=== PATIENT | male | born 1945 | race Caucasian/White ===

== ENCOUNTER 2016-10-16 08:23 | Observation (INO) ==
[2016-10-16] MEDS ORDERED: *HR* Morphine 2 MG/ML SYRINGE IVP PRN (10:02)
[2016-10-16] MEDS ORDERED: Naloxone 0.4 MG/ML INJ IVP PRN (10:02)
[2016-10-16] MEDS ORDERED: Ondansetron 4 MG/2 ML VIAL IVP PRN (10:02)
[2016-10-16] MEDS ORDERED: Acetaminophen 325 MG TABLET PO PRN (10:02)
[2016-10-16] MEDS ORDERED: *HR* HYDROcodone/Acet 10/325 mg TABLET PO PRN (10:55)
--- NOTE | 2016-10-16 11:03 | Internal Med History&Physical ---
Date of Encounter: 10/16/16 Time of Encounter: 10:15 Assessment and Plan (1) Metastatic lung cancer (metastasis from lung to other site) Current visit: Yes Status: Acute Patient was diagnosed of metastatic small cell lung cancer in 08/15/2016, imaging studies revealed metastases to pleura, and liver. He completed 3 cycles of chemotherapy by the end of September. Now he comes with unbearable right sided chest and right upper quadrant pain that is not controlled with oral medications at home. Pain is likely secondary to large liver metastases. Patient desires not to undergo any more therapy and to have palliative consultation. He appoints his friend Yanni Eugene as his POA. IV morphine as needed for pain. Palliative team consulted. DNR CCA DNI Qualifiers: Laterality: right Qualified Code(s): C34.91 - Malignant neoplasm of unspecified part of right bronchus or lung (2) Pneumothorax on right Current visit: Yes Status: Acute 10/16: Chest x-ray shows stable small right pneumothorax, unchanged from chest x- ray taken on October 09. Continue oxygen supplementation. Will manage conservatively in view of patient; s wishes to be enrolled in hospice care. No need for catheter placement at this time (3) Anxiety Current visit: No Status: Acute IV ativan as needed. (4) COPD (chronic obstructive pulmonary disease) Current visit: Yes Status: Acute nebs as needed. Qualifiers: COPD type: emphysema Emphysema type: centrilobular Qualified Code(s): J43.2 - Centrilobular emphysema (5) Hypertension Current visit: No Status: Chronic Well-controlled. Hold home medications. Qualifiers: Hypertension type: essential hypertension Qualified Code(s): I10 - Essential (primary) hypertension Internal Medicine - H&P: HPI Chief complaint: Worsening of her right-sided chest pain for 2 days Admitted From: Home Plans for Post Hospital Care: Hospice - Medical Facility History of present illness: Mr. Vazquez is a 71 year old male with past medical history of stage IV lung cancer with metastasis to liver and lungs, CAD, hypertension, COPD and depression. Patient was diagnosed with stage IV lung cancer in August 2016 and completed 3 cycles of chemotherapy by the end of September. He went to [facility] and stated that he did not want any more treatment and wanted to have a palliative consultation because of unbearable pain. He was transferred to our hospital for further palliative recommendations. His main complaint is right- sided chest pain and right upper quadrant pain every time he takes a deep breath. Mild shortness of breath on exertion. Patient uses a wheelchair. No bleeding. No urinary complaints. No lower extremity edema. No headache. No syncope. No focal deficit. No diarrhea. Past Med Surg Social Fam HX - Past Medical History Medical history: arthritis, cancer, COPD, coronary artery disease, GERD, hypertension, seizures Psychiatric history: depression - Past Surgical History Surgical History: coronary bypass (CABG), orthopedic, other, other - Social History Smoking Status: Former smoker Smokeless Tobacco Status: No Alcohol use: occasionally Drug use: none - Family History Father Living Status: Hx Family GI Disorders: Yes (GI bleed) Internal Medicine - H&P: Meds Albuterol Sulfate [Proair Hfa] 2 puff IH Q6H PRN 08/12/16 [History] Amlodipine [Norvasc] 10 mg PO DAILY 08/12/16 [History] Citalopram [CeleXA] 20 mg PO DAILY 08/12/16 [History] Folic Acid 1 mg PO DAILY 08/12/16 [History] LevETIRAcetam [Levetiracetam] 1,000 mg PO BID 08/12/16 [History] Metoprolol [Lopressor] 25 mg PO BID 08/12/16 [History] Multivitamin [Multivitamins] 1 each PO DAILY 08/12/16 [History] Oxygen 1 - 6 units .ROUTE AD 08/12/16 [History] Ranitidine HCl [Heartburn Relief] 150 mg PO BID 08/12/16 [History] Allopurinol [Zyloprim 300 MG] 300 mg PO DAILY 08/22/16 [History] Ondansetron ODT [Zofran ODT] 4 mg SL Q6HR PRN 08/22/16 [History] Megestrol Acetate [Megace] 40 mg PO BID #60 tablet 09/11/16 [Rx] Bed - Hospital [Hospital Bed] 1 each .ROUTE AD #1 each 09/25/16 [Rx] Lactose-Reduced Food [Ensure Liquid] 1 bottle PO TID #90 can 09/25/16 [Rx] LORazepam [Ativan] 1 mg PO Q6H PRN #90 tablet 10/14/16 [Rx] Morphine Immed Rel [Morphine Sulfate] 30 mg PO BID #60 tablet 10/14/16 [Rx] Oxycodone HCl/Acetaminophen [Percocet 10-325 mg Tablet] 1 each PO Q6H PRN #120 tablet 10/14/16 [Rx] Allergies iodine Adverse Reaction (Verified 10/09/16 06:34) See Comments IVP DYE ADVERSE REACTION MADE PT STAY PASSED OUT FOR 24 HRS All Systems PM: A 10-system review of systems was performed and is negative for pertinent findings except as documented above in the HPI. - Constitutional Vitals: Temp Pulse Resp BP Pulse Ox 97.9 F 108 20 109/71 92 L 10/16/16 10:43 10/16/16 10:43 10/16/16 10:43 10/16/16 10:43 10/16/16 10:43 General appearance: Present: cooperative, mild distress (mild respiratory distress due to RUQ pain), pleasant, answers questions appropriately - Eye Eye exam: Present: PERRL, sclera anicteric - Neck Neck exam general surgery: Present: supple, trachea midline - Respiratory Respiratory exam: Present: rhonchi (at lung bases) - Cardiovascular Cardiovascular exam: Present: tachycardia - GI/Abdominal GI/Abdominal exam: Present: normal bowel sounds, soft. Absent: distended, tenderness - Extremities Exam Extremities exam: Absent: pedal edema - Back Exam Back exam: Absent: CVA tenderness (L), CVA tenderness (R) - Neurological Exam Neurological exam: Present: alert, oriented X3, no focal deficits. Absent: facial droop, speech deficit
[2016-10-16] MEDS: *HR* LORazepam 2 MG/ML VIAL IVP SCH ×3 (13:08→21:48)
--- NOTE | 2016-10-16 14:11 | Palliative - Consult Note ---
Date of Encounter: 10/16/16 Time of Encounter: 13:53 - Assessment and Plan (1) Constipation Current Visit: Yes Status: Acute Assessment and plan: Have placed patient on bowel regimen continue to watch. Qualifiers: Constipation type: slow transit constipation Qualified Code(s): K59.01 - Slow transit constipation (2) Chest pain Current Visit: Yes Status: Acute Assessment and plan: Morphine as needed every 2 hours patient states that this has been effective for him. Pain in chest is related to pain in abdomen which I believe is all related back to his cancer pain. She did treat this and adjust medications as needed. Qualifiers: Chest pain type: chest pain on breathing Qualified Code(s): R07.1 - Chest pain on breathing (3) COPD (chronic obstructive pulmonary disease) Current Visit: Yes Status: Acute Assessment and plan: She has severe COPD and a questionable pneumothorax on the right side. There was question about a chest tube being placed and I am doubtful at this time it is necessary, I have consult to pulmonary to get their opinion at the patient 's request. Then the patient can decide if he wants to have the chest tube or not. Qualifiers: COPD type: emphysema Emphysema type: centrilobular Qualified Code(s): J43.2 - Centrilobular emphysema (4) Metastatic lung cancer (metastasis from lung to other site) Current Visit: Yes Status: Acute Assessment and plan: Under care from cancer Center. The patient states that he was told they had nothing left to offer. I have reviewed their notes I am not clear that there is nothing left to offer or not. For the patient's request I have consult oncology to clarify. If oncology has nothing to offer patient would like to opt for [facility] hospice as he lives in [facility]. Qualifiers: Laterality: right Qualified Code(s): C34.91 - Malignant neoplasm of unspecified part of right bronchus or lung (5) Pneumothorax on right Current Visit: Yes Status: Acute Assessment and plan: This could be chronic scarring, I have requested a consult from pulmonary as I am not sure he truly needs to have a chest tube placed. Having their opinion involved. Proceed after we get pulmonary's opinion. (6) Anxiety Current Visit: No Status: Acute Assessment and plan: he is on scheduled Ativan continue to watch. (7) Goals of care, counseling/discussion Current Visit: Yes Status: Acute Assessment and plan: Patient is DNR CCA DNI. He may very well wish to be comfort care ultimately but at this time he would like to have options given to him regarding his current situation and therefore we will not change him to comfort care until after we have all the decision-making is in place. Palliative-CN HPI - Data of Consult Patient: new to practice Requesting Physician: Florinda Johnson MD Primary Care Provider: PCP NO - Consult Narrative Palliative Care/Comfort Measures: Palliative care Reason for consult: Hospice questions, goals of care, pain control History of present illness: Mr. Vazquez is a 71 year old male Who presented to the [place] ER earlier today with increasing shortness of breath and abdominal pain that exist that extends into his chest. She has metastatic stage IV lung cancer metastases to liver. Also has CAD, hypertension and COPD which is rather severe and depression. He has completed 3 cycles of chemotherapy by the end of September after being diagnosed in August 2016 with lung cancer at the [place] ED he stated he did not wish to have any more treatment wanted to have palliative consultation and possibly hospice care. Plaints of very sharp pain across the right hand side of his chest and throughout his abdomen this is worse with movement trying to have a bowel movement or taking a deep breath is better with rest. Medication does seem to help with the pain. He also states he has been feeling more short of breath here of late. [place] emergency department it was noted that he had what appears to be a small pneumothorax on the right hand side. This does not seem to have changed all since the eighth and looking at his CT scan from the third may be a very large bleb. She wishes to have consultation asked whether not this requires a chest tube or not CC: Florinda Johnson MD Matthew of breath, and abdominal/chest pain Past Med Surg Social Fam HX - Past Medical History Medical history: arthritis, cancer, COPD, coronary artery disease, GERD, hypertension, seizures Psychiatric history: depression - Past Surgical History Surgical History: coronary bypass (CABG), orthopedic, other, other - Social History Smoking Status: Former smoker Smokeless Tobacco Status: No Alcohol use: occasionally Drug use: none - Family History Father Living Status: Hx Family GI Disorders: Yes (GI bleed) Medications and Allergies Albuterol Sulfate [Proair Hfa] 2 puff IH Q6H PRN 08/12/16 [History] Amlodipine [Norvasc] 10 mg PO DAILY 08/12/16 [History] Citalopram [CeleXA] 20 mg PO DAILY 08/12/16 [History] Folic Acid 1 mg PO DAILY 08/12/16 [History] LevETIRAcetam [Levetiracetam] 1,000 mg PO BID 08/12/16 [History] Metoprolol [Lopressor] 25 mg PO BID 08/12/16 [History] Multivitamin [Multivitamins] 1 each PO DAILY 08/12/16 [History] Oxygen 2 l .ROUTE AD 08/12/16 [History] Ranitidine HCl [Heartburn Relief] 150 mg PO BID 08/12/16 [History] Allopurinol [Zyloprim 300 MG] 300 mg PO DAILY 08/22/16 [History] Ondansetron ODT [Zofran ODT] 4 mg SL Q6HR PRN 08/22/16 [History] Megestrol Acetate [Megace] 40 mg PO BID #60 tablet 09/11/16 [Rx] Lactose-Reduced Food [Ensure Liquid] 1 bottle PO TID #90 can 09/25/16 [Rx] LORazepam [Ativan] 1 mg PO Q6H PRN #90 tablet 10/14/16 [Rx] Morphine Immed Rel [Morphine Sulfate] 30 mg PO BID #60 tablet 10/14/16 [Rx] HydrOXYzine Pamoate [Hydroxyzine Pamoate] 25 mg PO TID 10/16/16 [History] Oxycodone HCl/Acetaminophen [Percocet 10-325 mg Tablet] 1 tab PO Q6H PRN [History] TraZODone 50 mg PO HS 10/16/16 [History] Allergies iodine Adverse Reaction (Verified 10/09/16 06:34) See Comments IVP DYE ADVERSE REACTION MADE PT STAY PASSED OUT FOR 24 HRS - Constitutional Constitutional ROS PAL: decreased appetite, anorexia, malaise, weight loss - EENT Eyes: no discharge, no pain Ears: no ear discharge, no ear pain Ears, nose, mouth, throat: no dysphagia, no epistaxis, no mouth pain, no nasal congestion - Cardiovascular Cardiovascular ROS: chest pain, chest pain at rest, chest pain with activity, dyspnea on exertion, no irregular heart rhythm - Respiratory Respiratory: cough, dyspnea on exertion, pain on inspiration - Gastrointestinal Gastrointestinal: abdominal pain, constipation, no diarrhea, no nausea, no vomiting - Genitourinary Genitourinary ROS male: no urinary frequency, no urinary hesitancy, no urinary incontinence - Musculoskeletal Musculoskeletal ROS IM: back pain, myalgias - Integumentary ROS Integumentary: no rash, no skin pain, no sores, no wounds - Neurological Neurological ROS: no behavioral changes, no disequilibrium, no dizziness, no focal weakness, no headache(s), no lack of coordination - Psychiatric Psychiatric general PM: change in appetite, depression (Questionable), no confusion, no homicidal ideation, no hopelessness - Endocrine Endocrine IM: other (No thyroid or diabetes problems noted.) Palliative Care-Exam - Constitutional Vitals: Temp Pulse Resp BP Pulse Ox 97.9 F 108 20 109/71 92 L 10/16/16 10:43 10/16/16 10:43 10/16/16 10:43 10/16/16 10:43 10/16/16 10:43 General appearance: Present: no acute distress - Head Head Exam: Present: atraumatic, normal inspection - Eye Eye exam: Present: EOMI, normal appearance, PERRL - ENT ENT exam: Present: mucous membranes moist, normal oropharynx - Neck Neck exam: Present: normal inspection - Respiratory Respiratory exam: Present: chest wall tenderness, CTAB. Absent: decreased breath sounds (I am not hearing diminished sounds on the right side, there is a history of pneumothorax on the right.) - Cardiovascular Cardiovascular exam: Present: RRR - GI/Abdominal Exam GI/Abdominal exam: Present: normal bowel sounds, soft, tenderness - Extremities Exam Extremities exam: Present: normal inspection. Absent: pedal edema, tenderness - Neurological Exam Neurological exam: Present: alert, oriented X3 - Psychiatric Psychiatric exam: Present: normal affect, normal mood. Absent: agitated, anxious, homicidal ideation, suicidal ideation - Skin Skin exam: Present: dry, warm Consult Discharge Plan - Plan Referrals: NO,PCP [Primary Care Provider] - (waiting to see if patient goes hospice) Palliative Quality Palliative Quality: Screen for Code Status: Yes, Screen for Goals of Care: Yes, Screen for Pain: Yes, If Pain Regimen Started, Initiate Bowel Regimen: Yes, Screen for Nausea/Vomitting: Yes Code Status: 10/16/16 10:02 Resuscitation Status: Active [RES] Routine Comment: Resuscitation Status: [id number]
--- NOTE | 2016-10-16 15:32 | Event Note ---
Date of Encounter: 10/16/16 Time of Encounter: 15:30 The patient has now been seen by both pulmonary and oncology. Pulmonary does not feel the patient needs a chest tube and oncology does not have anything further to add to his therapy. Per oncology patient is opting for hospice. Start making that work as the patient wishes to have [facility] hospice back at [facility].
[2016-10-16] MEDS: *HR* Morphine 2 MG/ML SYRINGE IVP PRN ×2 (16:03→21:49)
--- NOTE | 2016-10-16 16:33 | Oncology Inp Consult Note ---
<Jimmie Jeffries Jr - Last Filed: 10/16/16 16:31> Date of Encounter: 10/16/16 Time of Encounter: 15:25 Assessment and Plan (1) Metastatic lung cancer (metastasis from lung to other site) Status: Acute Assessment and plan: He is a very pleasant, but unfortunate, 71-year-old male transferred from [facility] for pneumothorax on imaging. He was diagnosed a few weeks ago with metastatic extensive stage small cell lung cancer, with liver disease and disease in his mediastinal lymph nodes. She was transferred to palliative care unit for further treatment planning. The patient's had 3 cycles of carboplatin and etoposide. However, recent scans on 10/04/2016 show some progression despite treatment. The patient is extremely weak and has poor functional status. Patient wanted to know his options. There is no other treatment we would have or him outside of his current chemotherapy regimen. Patient did not want to entertain immunotherapy, like nivolumab. This would not be a good choice for him either, as autoimmune pneumonitis is a possible side effect. He would do poorly if this was result. The patient has severe lung disease outside of his cancer diagnosis. Dr. Miller came to see the patient as well. He agrees with poor prognosis, and hospice, as his lung disease is advanced. He declined to place chest tube or catheter into the pneumothorax because his lungs are too frail. So, conservative measures will be taken. After a long end-of-life discussion with me, and Dr Rudd, the patient has decided to go hospice, and not seek any further treatment. Patient will be set up with [facility] hospice at discharge. Dr Kenney advised. Dr Nam is manager economic and agrees with above plan. Qualifiers: Laterality: right Qualified Code(s): C34.91 - Malignant neoplasm of unspecified part of right bronchus or lung (2) Encounter for hospice care discussion Status: Acute - Data of Consult Patient: known to practice within the last 3 years Consult date: 10/16/16 Requesting Physician: Florinda Johnson MD Primary Care Provider: PCP NO - Consult Narrative Reason for consult: extensive stage small cell lung cancer History of present illness: Mr. Vazquez is a 71 year old male with metastatic , extensive stage, small cell lung cancer His oncologic history began with a CT chest w/o con on 08/12/16 shows large mass in the right lower lobe with extensive mediastinal and extrapleural lymphadenapathy with probable pleural metastases. Non-contrast CT also showed few lesions in the liver which could be metastasis per Rickreall but no obvious lesions reported in the CAT scan report PFT on 06/08/15 shows FEV1 2.61, 78% predicted ST on 06/13/15 shows perfusion imaging was negative for ischemia or infarct. gated EF= >70% He was admitted to [facility] where he underwent bronchoscopy biopsy Pathology from 08/15/16 shows small cell carcinoma, synaptophysin- positive, TTF -1-positive. CT head negative. Nuclear bone scan negative at [facility] Patient refused PET scan and MRI brain, as he cannot lay down for such a long period. He got first cycle of carboplatin and etoposide 08/17/2016 to 08/19/2016 as an inpatient. Cycle 2 on 09/09/2016. Carboplatin AUC 5 on day 1, Etoposide 60 mg/m day 1- 3. Neulasta day 5 Completed cycle 3 starting 09/30/2016. Cycle four scheduled for 10/21/[address] chest without contrast 10/04/2016 showed right paratracheal lung mass 5.8 x 5.1 cm no major change the treatment and progressive lymph nodes in the epicardial fat pad and multiple hepatic metastasis with evidence of progression the larger mass was 5.1 x 4.5 cm. Today, 10/16/2016, he sought emergency treatment at [facility] in [place], [place]. The patient has shortness of breath. Imaging showed possible pneumothorax in the right upper lung. Patient was transferred to [facility] palliative care unit, as patient desired discussion about hospice versus other treatment options. Past Med Surg Social Fam HX - Past Medical History Medical history: arthritis, cancer, COPD, coronary artery disease, GERD, hypertension, seizures Psychiatric history: depression - Past Surgical History Surgical History: coronary bypass (CABG), orthopedic, other, other - Social History Smoking Status: Former smoker Smokeless Tobacco Status: No Alcohol use: occasionally Drug use: none - Family History Father Living Status: Hx Family GI Disorders: Yes (GI bleed) Medications and Allergies Albuterol Sulfate [Proair Hfa] 2 puff IH Q6H PRN 08/12/16 [History] Amlodipine [Norvasc] 10 mg PO DAILY 08/12/16 [History] Citalopram [CeleXA] 20 mg PO DAILY 08/12/16 [History] Folic Acid 1 mg PO DAILY 08/12/16 [History] LevETIRAcetam [Levetiracetam] 1,000 mg PO BID 08/12/16 [History] Metoprolol [Lopressor] 25 mg PO BID 08/12/16 [History] Multivitamin [Multivitamins] 1 each PO DAILY 08/12/16 [History] Oxygen 2 l .ROUTE AD 08/12/16 [History] Ranitidine HCl [Heartburn Relief] 150 mg PO BID 08/12/16 [History] Allopurinol [Zyloprim 300 MG] 300 mg PO DAILY 08/22/16 [History] Ondansetron ODT [Zofran ODT] 4 mg SL Q6HR PRN 08/22/16 [History] Megestrol Acetate [Megace] 40 mg PO BID #60 tablet 09/11/16 [Rx] Lactose-Reduced Food [Ensure Liquid] 1 bottle PO TID #90 can 09/25/16 [Rx] LORazepam [Ativan] 1 mg PO Q6H PRN #90 tablet 10/14/16 [Rx] Morphine Immed Rel [Morphine Sulfate] 30 mg PO BID #60 tablet 10/14/16 [Rx] HydrOXYzine Pamoate [Hydroxyzine Pamoate] 25 mg PO TID 10/16/16 [History] Oxycodone HCl/Acetaminophen [Percocet 10-325 mg Tablet] 1 tab PO Q6H PRN [History] TraZODone 50 mg PO HS 10/16/16 [History] Allergies iodine Adverse Reaction (Verified 10/09/16 06:34) See Comments IVP DYE ADVERSE REACTION MADE PT STAY PASSED OUT FOR 24 HRS All systems: reviewed and no additional remarkable complaints except as stated Constitutional: Present: fatigue, malaise, weight loss Cardiovascular: Present: chest pain, chest pain at rest, chest pain with activity Respiratory: Present: cough, dyspnea, dyspnea on exertion, wheezing, excessive phlegm production Gastrointestinal: Present: nausea Musculoskeletal: Present: limited range of motion, muscle weakness, stiffness Psychiatric: Present: depression Oncology - Exam - Constitutional Vitals: Temp Pulse Resp BP Pulse Ox 97.9 F 108 20 109/71 92 L 10/16/16 10:43 10/16/16 10:43 10/16/16 10:43 10/16/16 10:43 10/16/16 10:43 General appearance: average body habitus, disheveled, mild distress - Head Head exam: Present: atraumatic, normal inspection - Eye Eye exam: Present: normal appearance, PERRL - ENT ENT exam: Present: mucous membranes dry - Neck Neck exam: Present: full ROM, normal inspection - Respiratory Respiratory exam: Present: accessory muscle use, decreased breath sounds, prolonged expiratory phase, respiratory distress, wheezes, tachypnea - Cardiovascular Cardiovascular exam: Present: +S1, +S2, tachycardia - GI/Abdominal GI/Abdominal exam: Present: diminished bowel sounds, soft - Extremities Exam Extremities exam: Present: full ROM, normal inspection - Neurological Exam Neurological exam: Present: alert, no focal deficits, speech deficit - Psychiatric Psychiatric exam: Present: anxious, depressed - Skin Skin exam: Present: dry, intact, pallor, warm Consult Discharge Plan - Plan Referrals: NO,PCP [Primary Care Provider] - (waiting to see if patient goes hospice) <Tad Nam - Last Filed: 10/17/16 08:10> Date of Encounter: 10/17/16 - Data of Consult Requesting Physician: Florinda Johnson MD Primary Care Provider: PCP NO - Consult Narrative History of present illness: Mr. Vazquez is a 71 year old male extensive stage small cell lung cancer, with progressive disease and clinical deterioration hospitalized after initial treatment at [facility]. Patient is in moderate distress with shortness of breath, had agreed to hospice after discussion with palliative care team and oncology. On my exam patient is using oxygen in mild to moderate distress. He denies any pain currently. He has been discussed other treatment options, and desires to be with hospice, transient Transition to inpatient hospice care. Palliative care team seen patient and discussed hospice care in detail. I agree with the above consultation notes and plan of care as noted above was discussed with me by Reece Jeffries CNP. Oncology - Exam - Constitutional Vitals: Temp Pulse Resp BP Pulse Ox 98.3 F 100 30 107/65 95 10/17/16 06:58 10/17/16 06:58 10/17/16 06:58 10/17/16 06:58 10/17/16 06:58 Oncology - Results - Labs Labs: BMP 10/17/16 06:12 Sodium 137 Potassium 3.1 L Chloride 102 Carbon Dioxide 20 BUN 8 Creatinine 0.65 L Glucose 104 H Calcium 9.5
--- NOTE | 2016-10-16 17:19 | Pulmonology Consult Note ---
Date of Encounter: 10/16/16 Time of Encounter: 16:30 Assessment and Plan (1) Pneumothorax on right Current Visit: Yes Status: Acute I reviewed chest x-ray and discussed with the patient that he has pneumothorax but it has been stable the treatment is to have a small chest tube, however with his advanced lung disease and might complicate his situation and since he does not want any invasive procedure including chest tube, I believe the best plan is to keep patient comfortable and this was discussed with Dr. Rudd as well as oncology team. Give for the consult and agreed with plan of care. (2) COPD (chronic obstructive pulmonary disease) Current Visit: Yes Status: Chronic Qualifiers: COPD type: emphysema Emphysema type: centrilobular Qualified Code(s): J43.2 - Centrilobular emphysema (3) Metastatic lung cancer (metastasis from lung to other site) Current Visit: Yes Status: Chronic Qualifiers: Laterality: right Qualified Code(s): C34.91 - Malignant neoplasm of unspecified part of right bronchus or lung History of Present Illness Consult date: 10/16/16 Requesting physician: William Rudd Reason for consult: pneumothorax Chief complaint: Pneumothorax History of present illness: This is a pleasant 71-year-old with past medical history of stage IV lung cancer with metastasis to the liver and the lungs and multiple other medical problems with also advanced COPD and pulmonary fibrosis who presented to the hospital with right-sided chest pain and also shortness of breath. Patient had chemotherapy. Patient was found to have right-sided pneumothorax which has been stable. Patient does not want any invasive procedure and he stated his breat Past Med Surg Social Fam HX - Past Medical History Medical history: arthritis, cancer, COPD, coronary artery disease, GERD, hypertension, seizures Psychiatric history: depression - Past Surgical History Surgical History: coronary bypass (CABG), orthopedic, other, other - Social History Smoking Status: Former smoker Smokeless Tobacco Status: No Alcohol use: occasionally Drug use: none - Family History Father Living Status: Hx Family GI Disorders: Yes (GI bleed) Medications and Allergies Albuterol Sulfate [Proair Hfa] 2 puff IH Q6H PRN 08/12/16 [History] Amlodipine [Norvasc] 10 mg PO DAILY 08/12/16 [History] Citalopram [CeleXA] 20 mg PO DAILY 08/12/16 [History] Folic Acid 1 mg PO DAILY 08/12/16 [History] LevETIRAcetam [Levetiracetam] 1,000 mg PO BID 08/12/16 [History] Metoprolol [Lopressor] 25 mg PO BID 08/12/16 [History] Multivitamin [Multivitamins] 1 each PO DAILY 08/12/16 [History] Oxygen 2 l .ROUTE AD 08/12/16 [History] Ranitidine HCl [Heartburn Relief] 150 mg PO BID 08/12/16 [History] Allopurinol [Zyloprim 300 MG] 300 mg PO DAILY 08/22/16 [History] Ondansetron ODT [Zofran ODT] 4 mg SL Q6HR PRN 08/22/16 [History] Megestrol Acetate [Megace] 40 mg PO BID #60 tablet 09/11/16 [Rx] Lactose-Reduced Food [Ensure Liquid] 1 bottle PO TID #90 can 09/25/16 [Rx] LORazepam [Ativan] 1 mg PO Q6H PRN #90 tablet 10/14/16 [Rx] Morphine Immed Rel [Morphine Sulfate] 30 mg PO BID #60 tablet 10/14/16 [Rx] HydrOXYzine Pamoate [Hydroxyzine Pamoate] 25 mg PO TID 10/16/16 [History] Oxycodone HCl/Acetaminophen [Percocet 10-325 mg Tablet] 1 tab PO Q6H PRN [History] TraZODone 50 mg PO HS 10/16/16 [History] Allergies iodine Adverse Reaction (Verified 10/09/16 06:34) See Comments IVP DYE ADVERSE REACTION MADE PT STAY PASSED OUT FOR 24 HRS All Systems: A 10-system review of systems was performed and is negative for pertinent findings except as documented above in the HPI. Physical Examination Vital Signs: Vital Signs, Last 4 Hours Temp Pulse Resp BP Pulse Ox 10/16/16 16:31 98.2 F 108 18 110/66 95 General appearance: alert, lethargic, appears uncomfortable ENT: oropharynx dry Neck: supple Effort: mildly labored Inspection: hyperextended Auscultation: right: other (Bronchial breathing sounds in the upper zone), bilateral: diminished breath sounds, rhonchi Percussion: bilateral: not dull Cardiovascular: regular rate and rhythm Gastrointestinal: normoactive bowel sounds Extremities: no cyanosis normal mental status, non-focal exam depressed Results - Diagnostic Findings Chest x-ray: report reviewed, image reviewed - Clinical Findings Intake & Output: Intake & Output 10/16/16 10/16/16 10/16/16 07:59 15:59 23:59 Weight 81.647 kg Consult Discharge Plan - Plan Referrals: NO,PCP [Primary Care Provider] - (waiting to see if patient goes hospice)
[2016-10-16] MEDS: Sennosides/Docusate Sodium TABLET PO SCH (21:48)
[2016-10-17] MEDS: *HR* Morphine 2 MG/ML SYRINGE IVP PRN ×5 (00:39→10:56)
[2016-10-17] MEDS: *HR* LORazepam 2 MG/ML VIAL IVP SCH ×4 (00:40→12:42)
[2016-10-17 07:16] LABS: BUN/Creatinine Ratio 12 (6-26); Blood Urea Nitrogen 8 mg/dL (8-26); Calcium 9.5 mg/dL (8.6-10.8); Carbon Dioxide 20 mEq/L (19-29); Chloride 102 mEq/L (98-109); Glucose 104 mg/dL (70-99); Magnesium 1.1 mg/dL (1.6-2.6); Osmolality,Calculated 283 (280-300); Potassium 3.1 mEq/L (3.5-4.5); Sodium 137 mEq/L (136-145); eGFR For African Americans > 60 (> 60); eGFR For Non-African Americans > 60 (> 60)
[2016-10-17] MEDS: Sennosides/Docusate Sodium TABLET PO SCH ×2 (08:52→23:04)
[2016-10-17] MEDS ORDERED: *HR* HYDROcodone/Acet 10/325 mg TABLET PO PRN (09:31)
[2016-10-17] MEDS: Ipratropium/Albuterol Neb 3 ML IH PRN ×2 (09:34→20:45)
--- NOTE | 2016-10-17 09:36 | Palliative Progress Note ---
Date of Encounter: 10/17/16 Time of Encounter: 09:00 - Assessment and plan (1) Exertional dyspnea Current Visit: No Status: Acute Assessment and plan: Continue Morphine PRN as needed. Has utilized x4 last 24 hours (2) Constipation Current Visit: Yes Status: Acute Assessment and plan: Continue bowel regimen and monitor. + BM this am. Qualifiers: Constipation type: slow transit constipation Qualified Code(s): K59.01 - Slow transit constipation (3) Goals of care, counseling/discussion Current Visit: Yes Status: Acute Assessment and plan: Consults from oncology and pulmonology reviewed and appreciated. Patient desires at this point to return to [facility] with [facility]. If ok with primary team, pt can be transferred today. Referral has been called. - Time Spent With Patient Total time spent is greater than 50% in coordination of care (as documented) at patient's floor/unit and/or counseling patient: 25 - 35 minutes - Subjective Interval history: Patient awake and alert. Ambulated to and had BM. C/o shortness of breath on exertion. Denies pain. No other complaints - Constitutional Vitals: Abnormal lab results Potassium 3.1 mEq/L (3.5-4.5) L 10/17/16 06:12 Creatinine 0.65 mg/dL (0.72-1.25) L 10/17/16 06:12 Glucose 104 mg/dL (70-99) H 10/17/16 06:12 Magnesium 1.1 mg/dL (1.6-2.6) L 10/17/16 06:12 General appearance: Present: no acute distress - Respiratory Respiratory exam: Present: decreased breath sounds, CTAB - Cardiovascular Cardiovascular exam: Present: +S1, +S2 - GI/Abdominal GI/Abdominal exam: Present: hypoactive bowel sounds, soft - Extremities Exam Extremities exam: Present: normal capillary refill, normal inspection - Neurological Exam Neurological exam: Present: alert, oriented X3, strengths equal and symetr throughout - Skin Skin exam: Present: dry, pallor, warm Palliative Quality Palliative Quality: Screen for Code Status: Yes, Screen for Goals of Care: Yes, Screen for Pain: Yes, If Pain Regimen Started, Initiate Bowel Regimen: Yes, Screen for Nausea/Vomitting: Yes Code Status: 10/16/16 10:02 Resuscitation Status: Active [RES] Routine Comment: Resuscitation Status: [id number] - Labs CBC & Chem 7: 10/17/16 06:12 Labs: Laboratory Results - last 24 hr 10/17/16 06:12 Sodium 137 Potassium 3.1 L Chloride 102 Carbon Dioxide 20 BUN 8 Creatinine 0.65 L Est GFR ( Amer) > 60 Est GFR (Non-Af Amer) > 60 BUN/Creatinine Ratio 12 Glucose 104 H Calculated Osmolality 283 Calcium 9.5 Magnesium 1.1 L Consult Discharge Plan - Plan Referrals: NO,PCP [Primary Care Provider] - (waiting to see if patient goes hospice)
[2016-10-17 10:16] LABS: Basophils # 0.1 K/mcL (0.0-0.2); Basophils % 0.8 %; Eosinophils # 0.3 K/mcL (0.0-0.6); Eosinophils % 3.4 %; Hematocrit 30.7 % (37.5-50.1); Hemoglobin 9.9 g/dL (12.9-16.9); Immature Granulocytes % 0.8 % (0-4); Lymphocytes # 1.6 K/mcL (0.6-4.6); Lymphocytes % 16.1 %; Mean Corpuscular HGB Conc 32.2 g/dL (31.6-35.5); Mean Corpuscular Hemoglobin 26.4 pg (28.0-33.3); Mean Corpuscular Volume 81.9 fL (83.0-100.0); Mean Platelet Volume 9.3 fL (9.4-12.4); Monocytes # 0.9 K/mcL (0.0-1.3); Monocytes % 9.2 %; Platelet Count 225 K/mcL (140-400); Red Blood Count 3.75 M/mcL (4.19-5.50); Red Cell Distribution Width 18.9 % (11.5-14.5); Segmented Neutrophils % 69.7 %
[2016-10-17] MEDS ORDERED: Haloperidol Lactate 5 MG/ML VIAL IVP PRN (11:49)
--- NOTE | 2016-10-17 13:13 | Event Note ---
Date of Encounter: 10/17/16 Time of Encounter: 13:00 Patient has became more confused throughout the day. At this point, he is not safe to be home alone for any period of time. Discussed with social work, [facility] has no bed available. Social work continuing to work on discharge plan. Continue to follow. Will not be able to be discharged today. .
[2016-10-17] MEDS ORDERED: Morphine Oral CONC 5 MG/0.25 ML ORAL.SYG PO PRN ×2 (14:14→16:55)
[2016-10-17] MEDS ORDERED: *HR* Morphine 2 MG/ML SYRINGE SQ ONE ×2 (14:37→15:45)
--- NOTE | 2016-10-17 14:42 | Internal Med Progress Note ---
Date of Encounter: 10/17/16 Time of Encounter: 10:10 - Assessment and plan (1) Metastatic lung cancer (metastasis from lung to other site) Current Visit: Yes Status: Chronic Assessment and plan: Poor prognosis. Recommend hospice. Palliative care following patient. Qualifiers: Laterality: right Qualified Code(s): C34.91 - Malignant neoplasm of unspecified part of right bronchus or lung (2) Pneumothorax on right Current Visit: Yes Status: Acute Assessment and plan: Related to metastatic lung cancer. No intervention at this time given patient' s DNR Comfort Care status. Supportive care. Pain control. O2 supplementation. (3) Seizures Current Visit: Yes Status: Chronic Assessment and plan: Resume Keppra. (4) COPD (chronic obstructive pulmonary disease) Current Visit: Yes Status: Chronic Assessment and plan: Continue O2 supplementation. Nebs as needed Qualifiers: COPD type: emphysema Emphysema type: centrilobular Qualified Code(s): J43.2 - Centrilobular emphysema - Subjective Interval history: Evaluated patient this morning. Awake and alert. Says pain has been well controlled. Denies any new complaints at this time. No nausea or vomiting. Patient became more confused as the day progressed. - Constitutional Vitals: Temp Pulse Resp BP Pulse Ox 98.8 F 125 30 117/63 92 L 10/17/16 10:36 10/17/16 10:36 10/17/16 10:36 10/17/16 10:36 10/17/16 10:36 General appearance: Present: cooperative, pleasant, no acute distress, answers questions appropriately - Respiratory Respiratory exam: Present: decreased breath sounds (at bases), CTAB, rhonchi. Absent: accessory muscle use, rales, wheezes - Cardiovascular Cardiovascular exam: Present: RRR, +S1, +S2. Absent: diastolic murmur, gallop, rubs, systolic murmur - Extremities Exam Extremities exam: Present: warm, radial pulses palpable and symetrical. Absent : calf tenderness, cyanotic, pedal edema Internal Medicine: Result - Labs CBC & Chem 7: 10/17/16 06:12 10/17/16 06:12 Labs: Short CBC 10/17/16 Range/Units 06:12 WBC 10.1 (4.3-11.1) K/mcL Hgb 9.9 L (12.9-16.9) g/dL Hct 30.7 L (37.5-50.1) % Plt Count 225 (140-400) K/mcL Neutrophils # 7.0 (1.6-8.9) K/mcL BMP 10/17/16 06:12 Sodium 137 Potassium 3.1 L Chloride 102 Carbon Dioxide 20 BUN 8 Creatinine 0.65 L Glucose 104 H Calcium 9.5 Consult Discharge Plan - Plan Referrals: NO,PCP [Primary Care Provider] - (waiting to see if patient goes hospice) - Attending Attestation This document has been at least partially created by [employer] recognition technology by Dr. Johnson. Errors in grammar, wording or other phrases may exist. If errors are found after the documentation is signed, they will be addressed individually in the addendum section of this document when appropriate.
[2016-10-17] MEDS: Haloperidol Lactate 5 MG/ML VIAL IM PRN ×2 (14:46→20:30)
[2016-10-17] MEDS ORDERED: *HR* LORazepam Oral Conc 2 MG/ML SL SCH (16:00)
[2016-10-17] MEDS: levETIRAcetam 250 MG TABLET PO SCH (17:07)
[2016-10-17] MEDS: Morphine Oral CONC 5 MG/0.25 ML ORAL.SYG PO SCH (20:40)
[2016-10-17] MEDS: Haloperidol Oral Conc 10 MG/5 ML UDC PO SCH (23:04)
[2016-10-18] MEDS: Morphine Oral CONC 5 MG/0.25 ML ORAL.SYG PO SCH ×3 (00:47→08:25)
[2016-10-18] MEDS: Haloperidol Lactate 5 MG/ML VIAL IM PRN (01:14)
[2016-10-18] MEDS: Ipratropium/Albuterol Neb 3 ML IH PRN (04:20)
[2016-10-18] MEDS: Haloperidol Oral Conc 10 MG/5 ML UDC PO SCH (05:55)
[2016-10-18] MEDS: levETIRAcetam 250 MG TABLET PO SCH (05:55)
[2016-10-18 07:56] VITALS: BP 130/80
[2016-10-18] MEDS: Sennosides/Docusate Sodium TABLET PO SCH (08:26)
[2016-10-18] MEDS ORDERED: *HR* FentaNYL PATCH 25 MCG PATCH TD SCH (09:00)
--- NOTE | 2016-10-18 09:07 | Palliative Progress Note ---
Date of Encounter: 10/18/16 Time of Encounter: 08:50 - Assessment and plan (1) Constipation Current Visit: Yes Status: Acute Qualifiers: Constipation type: slow transit constipation Qualified Code(s): K59.01 - Slow transit constipation (2) Chest pain Current Visit: Yes Status: Acute Qualifiers: Chest pain type: chest pain on breathing Qualified Code(s): R07.1 - Chest pain on breathing (3) COPD (chronic obstructive pulmonary disease) Current Visit: Yes Status: Chronic Qualifiers: COPD type: emphysema Emphysema type: centrilobular Qualified Code(s): J43.2 - Centrilobular emphysema (4) Metastatic lung cancer (metastasis from lung to other site) Current Visit: Yes Status: Chronic Qualifiers: Laterality: right Qualified Code(s): C34.91 - Malignant neoplasm of unspecified part of right bronchus or lung (5) Goals of care, counseling/discussion Current Visit: Yes Status: Acute - Time Spent With Patient Total time spent is greater than 50% in coordination of care (as documented) at patient's floor/unit and/or counseling patient: - Subjective Interval history: Very restless - Constitutional Vitals: Abnormal lab results RBC 3.75 M/mcL (4.19-5.50) L 10/17/16 06:12 Hgb 9.9 g/dL (12.9-16.9) L 10/17/16 06:12 Hct 30.7 % (37.5-50.1) L 10/17/16 06:12 MCV 81.9 fL (83.0-100.0) L 10/17/16 06:12 MCH 26.4 pg (28.0-33.3) L 10/17/16 06:12 RDW 18.9 % (11.5-14.5) H 10/17/16 06:12 MPV 9.3 fL (9.4-12.4) L 10/17/16 06:12 Potassium 3.1 mEq/L (3.5-4.5) L 10/17/16 06:12 Creatinine 0.65 mg/dL (0.72-1.25) L 10/17/16 06:12 Glucose 104 mg/dL (70-99) H 10/17/16 06:12 Magnesium 1.1 mg/dL (1.6-2.6) L 10/17/16 06:12 Palliative Quality Palliative Quality: Screen for Code Status: Yes, Screen for Goals of Care: Yes, Screen for Pain: Yes, If Pain Regimen Started, Initiate Bowel Regimen: Yes, Screen for Nausea/Vomitting: Yes Code Status: 10/16/16 10:02 Resuscitation Status: Active [RES] Routine Comment: Resuscitation Status: [id number] 10/17/16 11:50 DNR [Resuscitation Status: Active] [RES] Routine Comment: Resuscitation Status: DNR-Comfort Care - Labs CBC & Chem 7: 10/17/16 06:12 10/17/16 06:12 Labs: Laboratory Results - last 24 hr 10/17/16 06:12 WBC 10.1 RBC 3.75 L Hgb 9.9 L Hct 30.7 L MCV 81.9 L MCH 26.4 L MCHC 32.2 RDW 18.9 H Plt Count 225 MPV 9.3 L Immature Gran % 0.8 Seg Neutrophils % 69.7 Lymphocytes % 16.1 Monocytes % 9.2 Eosinophils % 3.4 Basophils % 0.8 Neutrophils # 7.0 Lymphocytes # 1.6 Monocytes # 0.9 Eosinophils # 0.3 Basophils # 0.1 Consult Discharge Plan - Plan Referrals: NO,PCP [Primary Care Provider] - (waiting to see if patient goes hospice)
[2016-10-18] MEDS ORDERED: Haloperidol Lactate 5 MG/ML VIAL IM PRN (09:37)
--- NOTE | 2016-10-18 09:55 | Death Note ---
Discharge Sum: Summary - Date and Time Date of admission: 10/16/16 09:21 Date of : 10/18/16 Time of : 09:37 - Summary Details: Patient is a 71-year-old male with history of stage IV lung cancer with metastasis to the liver and lungs, coronary artery disease hypertension, COPD who was hospitalized here for worsening chest pain on his right side. This is related to his cancer which is terminal. Palliative care was consulted and patient was in the process of getting set up for hospice. He started to decline yesterday with worsening shortness of breath and hypoxia. He was DNR comfort care only. He was provided O2 supplementation along with Ativan and morphine to keep him symptom-free. This morning at 9:37 AM he has peacefully. Family has been notified by nursing staff. - Additional Data Confirmation of as documented by pronouncing clinician: no pulse, no respirations, no heart sounds, pupils fixed and dilated Family: contacted Attending/PCP notified?: Yes Attending physician: Florinda Johnson MD Was code activated?: No Autopsy requested?: No certified fraud examiner notified?: No Organ bank notified?: No Advance directives: No Hospice patient?: No Discharge Sum: Diag - PCOD Probable Cause of : Cardiorespiratory arrest Discharge Sum: Prov - Provider Primary care physician: PCP NO Admitting clinician: Emilie Carmichael Consults: 10/16/16 10:02 Consult to Palliative Care [CONS] Routine Comment: Consulting Provider: Palliative [facility] [place] 10/16/16 14:16 Consult to Oncology [CONS] Stat Consulting Provider: Oncology [facility] [place] Reason for Consult: please see today, lung ca Time Notified: 14:17 Call Completed: Yes Consult to Pulmonology [CONS] Stat Consulting Provider: [facility] Reason for Consult: chest tube? Time Notified: 14:18 Call Completed: Yes Pronouncing clinician: Florinda Johnson - Attending Attestation This document has been at least partially created by [employer] recognition technology by Dr. Johnson. Errors in grammar, wording or other phrases may exist. If errors are found after the documentation is signed, they will be addressed individually in the addendum section of this document when appropriate.
--- NOTE | 2016-10-18 10:54 | Palliative Progress Note ---
Date of Encounter: 10/18/16 Time of Encounter: 08:55 - Assessment and plan (1) Constipation Current Visit: Yes Status: Acute Assessment and plan: Patient did have BM, with blood. He has not passed shortly after this exam. Qualifiers: Constipation type: slow transit constipation Qualified Code(s): K59.01 - Slow transit constipation (2) Chest pain Current Visit: Yes Status: Acute Assessment and plan: Increasing medication patient passed shortly after this exam. Qualifiers: Chest pain type: chest pain on breathing Qualified Code(s): R07.1 - Chest pain on breathing (3) COPD (chronic obstructive pulmonary disease) Current Visit: Yes Status: Chronic Qualifiers: COPD type: emphysema Emphysema type: centrilobular Qualified Code(s): J43.2 - Centrilobular emphysema (4) Metastatic lung cancer (metastasis from lung to other site) Current Visit: Yes Status: Chronic Assessment and plan: The patient passed shortly after this exam. Qualifiers: Laterality: right Qualified Code(s): C34.91 - Malignant neoplasm of unspecified part of right bronchus or lung (5) Goals of care, counseling/discussion Current Visit: Yes Status: Acute Assessment and plan: Plan was transitioned to [facility] hospice per patient request. The patient prior to being able to accomplish this. - Time Spent With Patient Total time spent is greater than 50% in coordination of care (as documented) at patient's floor/unit and/or counseling patient: - Subjective Interval history: Very restless, visibly short of breath. Please see medications. - Constitutional Vitals: Abnormal lab results RBC 3.75 M/mcL (4.19-5.50) L 10/17/16 06:12 Hgb 9.9 g/dL (12.9-16.9) L 10/17/16 06:12 Hct 30.7 % (37.5-50.1) L 10/17/16 06:12 MCV 81.9 fL (83.0-100.0) L 10/17/16 06:12 MCH 26.4 pg (28.0-33.3) L 10/17/16 06:12 RDW 18.9 % (11.5-14.5) H 10/17/16 06:12 MPV 9.3 fL (9.4-12.4) L 10/17/16 06:12 Potassium 3.1 mEq/L (3.5-4.5) L 10/17/16 06:12 Creatinine 0.65 mg/dL (0.72-1.25) L 10/17/16 06:12 Glucose 104 mg/dL (70-99) H 10/17/16 06:12 Magnesium 1.1 mg/dL (1.6-2.6) L 10/17/16 06:12 General appearance: Present: mild distress (GERD shortness of breath increased respiratory rates noted) - Head Head exam: Present: atraumatic, normal inspection - ENT ENT exam: Present: mucous membranes moist - Respiratory Respiratory exam: Present: rhonchi (Overall good air exchange), tachypnea (, very tachypneic ) - Cardiovascular Cardiovascular exam: Present: RRR, tachycardia - GI/Abdominal GI/Abdominal exam: Present: normal bowel sounds, soft. Absent: tenderness - Extremities Exam Extremities exam: Present: normal inspection. Absent: pedal edema, tenderness - Psychiatric Psychiatric exam: Present: agitated (Head moments of agitation during the night this is much improved now.), anxious (Slightly) - Skin Skin exam: Present: dry, warm Palliative Quality Palliative Quality: Screen for Code Status: Yes, Screen for Goals of Care: Yes, Screen for Pain: Yes, If Pain Regimen Started, Initiate Bowel Regimen: Yes, Screen for Nausea/Vomitting: Yes Code Status: 10/16/16 10:02 Resuscitation Status: Active [RES] Routine Comment: Resuscitation Status: [id number] 10/17/16 11:50 DNR [Resuscitation Status: Active] [RES] Routine Comment: Resuscitation Status: DNR-Comfort Care - Labs CBC & Chem 7: 10/17/16 06:12 10/17/16 06:12 Consult Discharge Plan - Plan Referrals: NO,PCP [Primary Care Provider] - (waiting to see if patient goes hospice)
== END 2016-10-18 11:50 | disposition expired ==
LOC: 2ANU
PROVIDERS: ADMIT Internal Medicine; ATTEND Internal Medicine